=== PATIENT | male | born 1985 | race African-American/Black ===

== ENCOUNTER 2020-09-29 03:11 | Emergency (ER) | payer OTHER ==
[2020-09-29 03:47] LABS: Hemoglobin 14.1 g/dL (14.0-18.0); Mean Corpuscular HGB CONC 32.3 g/dL (32.0-36.0); Mean Corpuscular Hemoglobin 27.2 pg (27.0-31.0); Mean Corpuscular Volume 84.1 fL (78.0-98.0); Mean Platelet Volume 9.8 fL (7.4-10.4); Platelet Count 149 thou/uL (130-400); RBC Distribution Width 12.2 % (11.5-14.5); White Blood Cell (WBC) Count 3.6 thou/uL (4.8-10.8)
[2020-09-29 04:21] LABS: Band 1 % (5-11); Lymphocytes 48 % (21-51); MDiff Complete? YES; Monocytes 13 % (0-10); Neutrophil 38 % (42-75)
[2020-09-29 04:32] LABS: ALT (SGPT) 21 U/L (8-55); AST (SGOT) 29 U/L (5-34); Albumin 4.6 g/dL (3.5-5.0); Alkaline Phosphatase 62 U/L (40-110); Anion Gap 13 mmol/L (10-20); BUN (Urea Nitrogen) 14 mg/dL (8.9-20.6); Bilirubin, Total 0.6 mg/dL (0.2-1.2); Calc. Creatinine Clearance 0 mL/min (70-130); Calcium 9.2 mg/dL (7.8-10.44); Carbon Dioxide 27 mmol/L (22-29); Chloride 101 mmol/L (98-107); Globulin 3.7 g/dL (2.4-3.5); Glucose 86 mg/dL (70-105); Lipase 34 U/L (8-78); Potassium 3.1 mmol/L (3.5-5.1); Protein, Total 8.3 g/dL (6.0-8.3); Sodium 138 mmol/L (136-145)
--- NOTE | 2020-09-29 08:06 | RAD ---
RADIOGRAPH CHEST 1 VIEW: DATE: 09/29/2020 HISTORY: 35-year-old male with chest pain FINDINGS: There are no airspace densities, pulmonary edema, pneumothorax, or cardiomegaly. The lateral costophr enic angles are sharp. IMPRESSION: No acute cardiopulmonary findings.
[2020-09-29 10:49] LABS: SARS-CoV-2 MS2 Positive; SARS-CoV-2 N Gene Negative; SARS-CoV-2 S Gene Negative; SARS-CoV-2 by NAA Not Detected (NotDetected); SARS-CoV-2 orf1ab Negative
--- NOTE | 2020-10-14 15:04 | EKG ---
Test Reason : Blood Pressure : / mmHG Vent. Rate : 074 BPM Atrial Rate : 074 BPM P-R Int : 216 ms QRS Dur : 104 ms QT Int : 420 ms P-R-T Axes : 033 -33 025 degrees QTc Int : 466 ms Sinus rhythm with 1st degree A-V block Left axis deviation Pulmonary disease pattern Abnormal ECG Confirmed by ESTELLA COHN ([id number]), primer expeditor and drier ANTWAN SHEPPARD ([id number]) on 10/14/2020 3:04:16 PM Referred By: Confirmed By:ESTELLA COHN
== END 2020-09-29 07:04 ==
LOC: ERS 03:11
DX: I10 Essential (primary) hypertension (principal); Z20.828 Contact with and (suspected) exposure to other viral communicable diseases; Z79.899 Other long term (current) drug therapy
CPT/HCPCS: 36415; 71045; 80053; 83690; 84484; 85025; 87635; 93005; 94760; U0003